=== PATIENT | male | born 1960 | race Caucasian/White ===

== ENCOUNTER 2017-01-26 11:21 | Observation (INO) | payer MEDICARE ==
[~2017-01-26] VITALS: Ht 185.4 cm; Wt 118.4 kg
[~2017-01-26 11:21] MED LIST: ASPIRIN81 MG PO; CLONIDINE HCL0.1 MG PO; FLEXERIL 10 MG10 MG PO; HYDROCHLOROTHIA25 MG PO; IMDUR ER TAB 6060 MG PO; LOSARTAN POTAS100 MG PO; METOPROLOL TART25 MG PO; NITROSTAT0.4 MG SL; NORVASC 5 MG TAB5 MG PO; PANTOPRAZOLE SO40 MG PO; PLAVIX 75 MG TA75 MG PO; SIMVASTATIN20 MG PO
[2017-01-26 12:49] LABS: HEMOGLOBIN 15.7 gm/dl (14.0-17.5); RED BLOOD COUNT 5.51 M/UL (4.20-5.50); WHITE BLOOD COUNT 8.7 K/UL (4.5-11.0)
[2017-01-26 13:16] LABS: BUN/CREATININE RATIO 14 (0-10)
[2017-01-26] MEDS ORDERED: JANUVIA100 MG PO (18:38)
[2017-01-26] MEDS ORDERED: IBUPROFEN800 MG PO (18:39)
[2017-01-27 05:57] LABS: HEMOGLOBIN 14.4 gm/dl (14.0-17.5); RED BLOOD COUNT 5.13 M/UL (4.20-5.50); WHITE BLOOD COUNT 10.7 K/UL (4.5-11.0)
[2017-01-27 06:48] LABS: BUN/CREATININE RATIO 17 (0-10)
[2017-01-27] MEDS ORDERED: ISOSORBIDE MONO60 MG PO (19:00)
[2017-01-27] MEDS ORDERED: HYDRALAZINE HCL25 MG PO (19:02)
[2017-01-27] MEDS ORDERED: METOPROLOL TART25 MG PO (19:02)
[2017-01-27] MEDS ORDERED: GLUCOPHAGE 500500 MG PO (19:03)
== END 2017-01-27 19:35 | disposition home or self-care (01) ==
LOC: ER1 11:21 → ZEROF 14:15 → MED SURG 4 14:15
PROVIDERS: Emergency Medicine; ADMIT Family Medicine
DX: I25.119 Atherosclerotic heart disease of native coronary artery with unspecified angina pectoris (principal); I35.0 Nonrheumatic aortic (valve) stenosis; I10 Essential (primary) hypertension; E11.9 Type 2 diabetes mellitus without complications; E78.5 Hyperlipidemia, unspecified; K21.9 Gastro-esophageal reflux disease without esophagitis; G89.29 Other chronic pain; M54.5 Low back pain; Z86.73 Personal history of transient ischemic attack (TIA), and cerebral infarction without residual deficits; Z87.891 Personal history of nicotine dependence; Z82.49 Family history of ischemic heart disease and other diseases of the circulatory system; Z83.3 Family history of diabetes mellitus; Z79.1 Long term (current) use of non-steroidal anti-inflammatories (NSAID); Z79.82 Long term (current) use of aspirin; Z79.84 Long term (current) use of oral hypoglycemic drugs; Z79.899 Other long term (current) drug therapy; Z98.890 Other specified postprocedural states
CPT/HCPCS: ECHO; 36415; 71010; 80053; 80061; 82550; 82553; 82962; 83036; 83874; 84484; 85025; 85027; 93005; 93306; 94640; 94664; 99285; G0378

== ENCOUNTER → 2017-02-14 | Outpatient (CLI) | payer MEDICARE ==
[~2017-02-14] MED LIST changes: +GLUCOPHAGE 500500 MG PO; +HYDRALAZINE HCL25 MG PO; +IBUPROFEN800 MG PO; +ISOSORBIDE MONO60 MG PO; +JANUVIA100 MG PO
== END ==
LOC: KOH-I 11:17
DX: R10.11 Right upper quadrant pain (principal); K76.0 Fatty (change of) liver, not elsewhere classified
CPT/HCPCS: 76705

== ENCOUNTER → 2017-02-22 | Outpatient (CLI) | payer MEDICARE | LOC: NM 08:22 | DX: R10.11 Right upper quadrant pain (principal) | CPT/HCPCS: 78227; A9537; J2805 ==

== ENCOUNTER → 2017-04-04 | Day surgery (SDC) | payer MEDICARE | END | disposition home or self-care (01) | LOC: OR 07:13 | PROVIDERS: Internal Medicine Gastroenterology | PROC: 0DB48ZX Excision of Esophagogastric Junction, Via Natural or Artificial Opening Endoscopic, Diagnostic (ICD-10-PCS; 2017-04-04) | PROC: 0DB68ZX Excision of Stomach, Via Natural or Artificial Opening Endoscopic, Diagnostic (ICD-10-PCS; principal; 2017-04-04 09:45) | DX: K29.50 Unspecified chronic gastritis without bleeding (principal); K21.0 Gastro-esophageal reflux disease with esophagitis; K20.0 Eosinophilic esophagitis; E11.9 Type 2 diabetes mellitus without complications; I10 Essential (primary) hypertension; M62.08 Separation of muscle (nontraumatic), other site; K76.0 Fatty (change of) liver, not elsewhere classified; K59.09 Other constipation; E66.9 Obesity, unspecified; Z68.34 Body mass index [BMI] 34.0-34.9, adult; Z88.8 Allergy status to other drugs, medicaments and biological substances; Z79.84 Long term (current) use of oral hypoglycemic drugs; Z79.82 Long term (current) use of aspirin; Z79.02 Long term (current) use of antithrombotics/antiplatelets; Z79.899 Other long term (current) drug therapy | CPT/HCPCS: 82962; J2250; J3010; J7030 ==

== ENCOUNTER → 2021-07-05 | Outpatient (CLI) | payer MEDICARE ==
[~2021-07-05] MED LIST changes: +ALBUTEROL INH; +ALDACTONE25 MG PO; +ANORO ELLIPTA1 EACH INH; +ASPIRIN EC81 MG PO; +CRESTOR10 MG PO; +DOXYCYCLINE HY100 MG PO; +ELIQUIS5 MG PO; +ENTRESTO 49 MG1 EACH PO; +FLEXERIL PO; +FLOVENT INH; +GLIPIZIDE PO; +LASIX40 MG PO; +LEXAPRO10 MG PO; +METOPROLOL ER PO; +PHENERGAN 25 MG25 M1 PO; +PROTONIX40 MG PO; +THEOPHYLLINE600 MG PO; +VICTOZA 3-0.6 MG/0.1 SQ
== END ==
LOC: KOH-I 13:58
DX: R06.02 Shortness of breath (principal); R91.8 Other nonspecific abnormal finding of lung field
CPT/HCPCS: 71250

== ENCOUNTER 2021-09-09 19:09 | Observation (INO) | payer MEDICARE, OTHER ==
[~2021-09-09] VITALS: Ht 185.4 cm; Wt 119.3 kg
[2021-09-09 20:20] LABS: HEMOGLOBIN 15.6 gm/dl (14.0-17.5); RED BLOOD COUNT 5.3 M/UL (4.20-5.50); WHITE BLOOD COUNT 9.3 K/UL (4.5-11.0)
[2021-09-09 20:39] LABS: BUN/CREATININE RATIO 18 (0-10)
[2021-09-10] MEDS ORDERED: GLIPIZIDE10 MG PO (03:13)
[2021-09-10] MEDS ORDERED: CICLOPIROX6.6 ML TP (03:15)
[2021-09-10] MEDS ORDERED: JARDIANCE10 MG PO (03:16)
[2021-09-10] MEDS ORDERED: TRELEGY ELLIPT1 EACH INH (03:17)
[2021-09-10] MEDS ORDERED: RELION NOV100 UNIT/2 SQ ×2 (03:18→03:19)
[2021-09-10] MEDS ORDERED: PROTONIX 40 MG40 M1 PO (03:19)
[2021-09-10] MEDS ORDERED: METOPROLOL SUC200 MG PO (03:20)
[2021-09-10] MEDS ORDERED: FUROSEMIDE40 MG PO (03:23)
[2021-09-10] MEDS ORDERED: CYCLOBENZAPRINE10 MG PO (03:24)
[2021-09-10] MEDS ORDERED: ESCITALOPRAM OX20 MG PO (03:26)
[2021-09-10] MEDS ORDERED: ADULT LOW DOSE81 MG PO (03:35)
[2021-09-11 03:34] LABS: HEMOGLOBIN 15.5 gm/dl (14.0-17.5); RED BLOOD COUNT 5.34 M/UL (4.20-5.50)
[2021-09-11 03:42] LABS: BUN/CREATININE RATIO 22 (0-10)
[2021-09-12 06:58] LABS: BUN/CREATININE RATIO 26 (0-10)
[2021-09-13] MEDS ORDERED: MEDROL4 MG PO (11:36)
== END 2021-09-13 11:05 | disposition home or self-care (01) ==
LOC: ER1 19:09 → CDU 09-10 00:16 → MED SURG 4 09-10 00:16
PROVIDERS: Internal Medicine; Physician Assistant Medical; ADMIT Internal Medicine
DX: J44.1 Chronic obstructive pulmonary disease with (acute) exacerbation (principal); J96.01 Acute respiratory failure with hypoxia; I25.10 Atherosclerotic heart disease of native coronary artery without angina pectoris; I11.0 Hypertensive heart disease with heart failure; I50.20 Unspecified systolic (congestive) heart failure; E11.65 Type 2 diabetes mellitus with hyperglycemia; I44.7 Left bundle-branch block, unspecified; R00.0 Tachycardia, unspecified; E66.9 Obesity, unspecified; Z86.73 Personal history of transient ischemic attack (TIA), and cerebral infarction without residual deficits; Z88.5 Allergy status to narcotic agent; Z88.8 Allergy status to other drugs, medicaments and biological substances; Z79.82 Long term (current) use of aspirin; Z79.01 Long term (current) use of anticoagulants; Z79.84 Long term (current) use of oral hypoglycemic drugs; Z20.822 Contact with and (suspected) exposure to COVID-19
CPT/HCPCS: ECHO; 36415; 36600; 71045; 80048; 80053; 82550; 82553; 82803; 82962; 83605; 83735; 83874; 83880; 84484; 85025; 87040; 93005; 93306; 94640; 94664; 94760; 94762; 96374; 96375; 99284; G0378; J0696; J1650; J1956; J2920; J2930; J7030; U0002

== ENCOUNTER → 2021-10-29 | Outpatient (CLI) | payer MEDICARE ==
[~2021-10-29] MED LIST changes: +ADULT LOW DOSE81 MG PO; +CICLOPIROX6.6 ML TP; +CYCLOBENZAPRINE10 MG PO; +ESCITALOPRAM OX20 MG PO; +FUROSEMIDE40 MG PO; +GLIPIZIDE10 MG PO; +JARDIANCE10 MG PO; +MEDROL4 MG PO; +METOPROLOL SUC200 MG PO; +PROTONIX 40 MG40 M1 PO; +RELION NOV100 UNIT/2 SQ; +TRELEGY ELLIPT1 EACH INH
== END ==
LOC: LAB 11:03
DX: R93.2 Abnormal findings on diagnostic imaging of liver and biliary tract (principal)
CPT/HCPCS: 36415; 82565; 84520

== ENCOUNTER → 2022-07-05 | Outpatient (CLI) | payer MEDICARE | LOC: KOH-I 08:30 | DX: R14.0 Abdominal distension (gaseous) (principal); K59.00 Constipation, unspecified | CPT/HCPCS: 76700 ==